=== PATIENT | female | born 1995 | race Two or more races ===

== ENCOUNTER 2021-08-22 19:41 | Emergency (ER) | payer MEDICAID, OTHER ==
[~2021-08-22] VITALS: Ht 175.3 cm; Wt 74.8 kg
[2021-08-22 19:46] VITALS: BP 143/87
[2021-08-22] MEDS ORDERED: LORazepam 0.5 MG TAB PO ONE (20:00)
== END 2021-08-22 21:41 | disposition left against medical advice (07) ==
LOC: EDBD 19:41 → ER 19:41
DX: F41.9 Anxiety disorder, unspecified (principal); T43.615A Adverse effect of caffeine, initial encounter; Y92.89 Other specified places as the place of occurrence of the external cause

== ENCOUNTER 2021-10-26 16:23 | Emergency (ER) | payer MEDICAID ==
[~2021-10-26] VITALS: Ht 180.3 cm; Wt 81.8 kg
[2021-10-26] MEDS ORDERED: IPRATROPIUM BROM 0.5 MG/2.5ML INH SOL NEB ONE (17:15)
[2021-10-26] MEDS ORDERED: ALBUTEROL SULF 2.5 MG/0.5ML(0.5%) NEB SOLN NEB ONE (17:15)
[2021-10-26] MEDS ORDERED: ALPRAZolam 0.5 MG TAB PO ONE (17:15)
[2021-10-26 17:40] VITALS: BP 131/80
[2021-10-26] MEDS ORDERED: PRED20TA2 PO (17:47)
[2021-10-26] MEDS ORDERED: HYDR50CA PO (17:47)
== END 2021-10-26 18:02 | disposition left against medical advice (07) ==
LOC: ER 16:25
DX: J45.901 Unspecified asthma with (acute) exacerbation (principal); F41.1 Generalized anxiety disorder; F17.210 Nicotine dependence, cigarettes, uncomplicated; F12.10 Cannabis abuse, uncomplicated; Z53.29 Procedure and treatment not carried out because of patient's decision for other reasons
CPT/HCPCS: 94640; 99283; J7644

== ENCOUNTER 2021-10-31 17:01 | Emergency (ER) | payer MEDICAID ==
[~2021-10-31] VITALS: Ht 180.3 cm; Wt 84.3 kg
[~2021-10-31 17:01] MED LIST: HYDR50CA PO; PRED20TA2 PO
[2021-10-31] MEDS ORDERED: ALBUTEROL SULF 2.5 MG/0.5ML(0.5%) NEB SOLN HHN ONE (17:15)
[2021-10-31] MEDS ORDERED: methylPREDNISolone SOD SUCC 125 MG/2 ML VL IV ONE (17:15)
[2021-10-31] MEDS ORDERED: IPRATROPIUM BROM 0.5 MG/2.5ML INH SOL HHN ONE (17:15)
[2021-10-31] MEDS ORDERED: SODIUM CHLORIDE 0.9% 1,000 ML IV ONE (17:45)
[2021-10-31 18:25] VITALS: BP 145/79
[2021-10-31 19:04] LABS: Basophils # (auto) 0 10 ^3/uL (0-0.2); Basophils % (auto) 0.5 % (0.0-2.0); Eosinophils # (auto) 0.1 10 ^3/uL (0-0.8); Eosinophils % (auto) 0.8 % (0.0-7.0); Hematocrit 37.6 % (36.0-46.0); Lymphocytes # (auto) 0.8 10 ^3/uL (0.4-5.4); Lymphocytes % (auto) 8.5 % (10.0-50.0); Mean Corpuscular Hemoglobin 27.9 pg (28.0-32.0); Mean Corpuscular Volume 87.3 fL (80.0-100.0); Monocytes # (auto) 0.2 10 ^3/uL (0-1.3); Monocytes % (auto) 2.3 % (0.0-12.0); Neutrophils # (auto) 7.8 10 ^3/uL (1.6-8.6); Neutrophils % (auto) 87.9 % (37.0-80.0); Nucleated Red Blood Cells % 0.1 %; Red Cell Distribution Width 14.2 % (11.8-14.3); White Blood Cell 8.9 10^3/uL (4.4-10.8)
[2021-10-31] MEDS ORDERED: LORazepam 2MG/ML-1ML VIAL IV ONE (19:15)
[2021-10-31 19:34] LABS: Albumin 3.8 g/dL (3.4-5.0); Calcium 8.7 mg/dL (8.5-10.1); Potassium 3.4 mmol/L (3.5-5.1)
[2021-10-31 19:39] LABS: BUN/Creatinine Ratio 14.5; Bilirubin, Total 0.2 mg/dL (0.2-1.0); Total Protein 7.5 g/dL (6.4-8.2)
[2021-10-31] MEDS ORDERED: AZIT1POW PO (20:41)
[2021-10-31] MEDS ORDERED: METH4PAK PO (20:41)
[2021-10-31] MEDS ORDERED: LORazepam 2MG/ML-1ML VIAL IM ONE (20:45)
[2021-10-31] MEDS ORDERED: methylPREDNISolone SOD SUCC 125 MG/2 ML VL IM ONE (20:45)
[2021-10-31] MEDS ORDERED: LORazepam 0.5 MG TAB PO ONE (21:30)
== END 2021-10-31 21:58 | disposition home or self-care (01) ==
LOC: ER 17:01
DX: J45.901 Unspecified asthma with (acute) exacerbation (principal)
CPT/HCPCS: 36415; 71046; 80053; 85025; 96372; 99284; J2930; J7644

== ENCOUNTER 2023-10-18 15:48 | Emergency (ER) | payer MEDICAID ==
[~2023-10-18] VITALS: Ht 180.3 cm; Wt 107.0 kg
[~2023-10-18 15:48] MED LIST changes: +AZIT1POW PO; +METH4PAK PO
[2023-10-18 16:19] LABS: Basophils # (auto) 0.1 10 ^3/uL (0-0.2); Basophils % (auto) 1.2 % (0.0-2.0); Eosinophils # (auto) 0.1 10 ^3/uL (0-0.8); Eosinophils % (auto) 0.9 % (0.0-7.0); Hematocrit 37.4 % (36.0-46.0); Hemoglobin 12.7 g/dL (12.2-16.2); Lymphocytes # (auto) 3.3 10 ^3/uL (0.4-5.4); Lymphocytes % (auto) 38.8 % (10.0-50.0); Mean Corpuscular Hemoglobin 29.4 pg (28.0-32.0); Mean Corpuscular Hgb Conc. 33.9 g/dL (32.0-36.0); Mean Corpuscular Volume 86.9 fL (80.0-100.0); Monocytes # (auto) 0.7 10 ^3/uL (0-1.3); Monocytes % (auto) 8.4 % (0.0-12.0); Neutrophils # (auto) 4.3 10 ^3/uL (1.6-8.6); Neutrophils % (auto) 50.7 % (37.0-80.0); Nucleated Red Blood Cells % 0.1 %; Platelet Count (auto) 328 10^3/uL (140-450); Red Cell Distribution Width 12.5 % (11.8-14.3); White Blood Cell 8.5 10^3/uL (4.4-10.8)
[2023-10-18 16:34] LABS: INR 0.99 (0.9-1.15); Partial Thromboplastin Time 26.4 SEC (24.5-34.5); Prothrombin Time 10.5 sec (9.3-11.8)
[2023-10-18 16:39] LABS: Alanine Aminotransferase 25 U/L (7-40); Albumin 4.1 g/dL (3.2-4.8); Alkaline Phosphatase 53 U/L (46-116); Anion Gap 7 (5-15); Aspartate Aminotransferase 16 U/L (13-40); BUN/Creatinine Ratio 11.8 (10.0-20.0); Bilirubin, Total 0.4 mg/dL (0.2-1.0); Blood Urea Nitrogen 12 mg/dL (9-23); Calcium 9.3 mg/dL (8.7-10.4); Carbon Dioxide 24 mmol/L (20-30); Chloride 107 mmol/L (98-107); Glucose 97 mg/dL (74-106); Potassium 3.7 mmol/L (3.5-5.1); Sodium 138 mmol/L (136-145)
[2023-10-18] MEDS: KETOROLAC TROMETH 60MG/2ML VIAL IM ONE (17:54)
[2023-10-18 18:08] LABS: Urine Bacteria FEW /hpf (None Seen); Urine Blood Negative /uL (Negative); Urine Clarity Clear (Clear); Urine Color Light-Yellow (Yellow); Urine Protein, UAD Negative (Negative); Urine Specific Gravity 1.022 (1.001-1.035); Urine Urobilinogen Normal (Negative); Urine WBC 2 /hpf (0 - 5)
[2023-10-18] MEDS ORDERED: NAP500T GT (19:30)
[2023-10-18] MEDS: HYDROcodone-ACET 10/325MG TAB PO ONE (20:45)
[2023-10-18] MEDS ORDERED: NAP500T PO (20:58)
[2023-10-18 21:01] VITALS: BP 131/78; TEMP 97.6
[2023-10-18 21:02] VITALS: PULSE 61; RESP 18; O2SAT 96
== END 2023-10-18 21:07 | disposition home or self-care (01) ==
LOC: ER 15:48
DX: R51.9 Headache, unspecified (principal); J45.909 Unspecified asthma, uncomplicated; F17.210 Nicotine dependence, cigarettes, uncomplicated; F12.90 Cannabis use, unspecified, uncomplicated
CPT/HCPCS: 36415; 70450; 71045; 80053; 81001; 84484; 85025; 85379; 85610; 85730; 93005; 96372; 99285; J1885

== ENCOUNTER 2024-12-18 14:52 | Emergency (ER) | payer MEDICAID ==
[~2024-12-18] VITALS: Ht 170.2 cm; Wt 110.2 kg
[~2024-12-18 14:52] MED LIST changes: +NAP500T PO
--- NOTE | 2024-12-18 15:08 | ED.PDOC ---
History of Present Illness HPI Comments This is a 29-year-old female who comes in with chief complaint of sore throat. The patient states that the symptoms started approximately three weeks ago. The patient denies any fever or chills. The patient denies any other complaints at this time. 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 Chief Complaint: Sore Throat Time Seen by MD: 14:58 Primary Care Provider: UNKNOWN Reviewed Notes: Nurses Notes, Medications, Allergies (No allergies to medications) Allergies: Coded Allergies: NO KNOWN ALLERGIES (Unverified , 08/22/21) Home Meds Active Scripts Azithromycin (Zithromax) 1 Gm Pow, 1 PACK PO ONCE, #1 PACK Prov:GUDELIA GONZALEZ MD 12/18/24 Naproxen (NAPROSYN TABLET) 500 Mg Tb, 500 MG PO BID for 10 Days, #20 TAB Prov:MASHA ESPINOZA MD 10/18/23 Methylprednisolone (Medrol Dosepak) 4 Mg Presley, 4 MG PO UD, #21 TAB UAD Prov:GUDELIA GONZALEZ MD 10/31/21 Prednisone (Prednisone) 20 Mg Tab, 60 MG PO DAILY, #18 MG Prov:KEZIA CONTRERAS 10/26/21 Hydroxyzine Pamoate (Vistaril) 50 Mg Cap, 50 MG PO QHSP PRN, #20 CAP Prov:KEZIA CONTRERAS 10/26/21 Information Source: Patient Mode of Arrival: Ambulatory Severity: Mild Timing: Weeks (Symptoms started three weeks ago) Duration: Since onset Prehospital treatment: None Location: Sore throat Associated signs and symptoms No vomiting or diarrhea Past Medical History PAST MEDICAL HISTORY: Anxiety, Asthma Surgical History: Denies all surgeries 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: 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 Family History Family History: Reviewed,noncontributory to illness Social History Smoker: Other (VAPE) Alcohol: Occasionally Drugs: Marijuana Lives In: Home Constitutional: denies: chills, diaphoresis, fatigue, fever, malaise, sweats, weakness, others EENTM: reports: throat pain; denies: blurred vision, double vision, ear bleeding, ear discharge, ear drainage, ear pain, ear ringing, eye pain, eye redness, hearing loss, mouth pain, mouth swelling, nasal discharge, nose bleeding, nose congestion, nose pain, photophobia, tearing, throat swelling, voice changes, others Respiratory: denies: cough, hemoptysis, orthopnea, SOB at rest, shortness of breath, SOB with excertion, stridor, wheezing, others Cardiovascular: denies: chest pain, dizzy spells, diaphoresis, Dyspnea on exertion, edema, irregular heart beat, left arm pain, lightheadedness, palpitations, PND, syncope, others Gastrointestinal: denies: abdomen distended, abdominal pain, blood streaked bowels, constipated, diarrhea, dysphagia, difficulty swallowing, hematemesis, melena, nausea, poor appetite, poor fluid intake, rectal bleeding, rectal pain, vomiting, others Genitourinary: denies: abnormal vagina bleeding, burning, dyspareunia, dysuria, flank pain, frequency, hematuria, incontinence, pain, , vagina discharge, urgency, others Neurological: denies: dizziness, fainting, headache, left sided numbness, left sided weakness, numbness, paresthesia, pre-existing deficit, right sided numbness, right sided weakness, seizure, speech problems, tingling, tremors, weakness, others Musculoskeletal: denies: back pain, gout, joint pain, joint swelling, muscle pain, muscle stiffness, neck pain, others Integumetry: denies: bruises, change in color, change in hair/nails, dryness, laceration, lesions, lumps, rash, wounds, others Allergic/Immunocompromised: denies: Difficulty Healing, Frequent Infections, Hives, Itching, others Hematologic/Lymphatic: denies: anemia, blood clots, easy bleeding, easy bruising, swollen glands, others Endocrine: denies: excessive hunger, excessive sweating, excessive thirst, excessive urination, flushing, intolerance to cold, intolerance to heat, unexplained weight gain, unexplained weight loss, others Psychiatric: denies: anxiety, bipolar disorder, depression, hopeless, panic disorder, schizophrenia, sleepless, suicidal, others Physical Exam General Appearance: Mild Distress HEENT: Pharyngeal Erythema, TMs Normal Neck: Full Range of Motion, Non-Tender, Normal, Normal Inspection Respiratory: Chest Non-Tender, Lungs Clear, No Accessory Muscle Use, No Respiratory Distress, Normal Breath Sounds Cardiovascular: No Edema, No JVD, No Murmur, No Gallop, Normal Peripheral Pulses, Regular Rate/Rhythm Breast Exam: Deferred Gastrointestinal: No Organomegaly, Non Tender, No Pulsatile Mass, Normal Bowel Sounds, Soft Genitalia: Deferred Pelvic: Deferred Rectal: Deferred Extremities: No calf tenderness, Normal capillary refill, Normal inspection, Normal range of motion, Non-tender, No pedal edema Musculoskeletal : Apperance: Normal Neurologic: Alert, leadlighter II-XII nml as Tested, No Motor Deficits, Normal Affect, Normal Mood, No Sensory Deficits Cerebellar Function: Normal Reflexes: Normal Skin: Dry, Normal Color, Warm Lymphatic: No Adenopathy Was a procedure done? Was a procedure done?: No Differential Dx Considerations may include: Pharyngitis, tonsillitis, generalized weakness X-Ray, Labs, Meds, VS Vital Signs Date Time Temp Pulse Resp B/P (MAP) Pulse Ox O2 Delivery O2 Flow Rate FiO2 12/18/24 14:53 97.3 84 18 137/76 96 97.3 The patient will be discharged The patient will follow up with the primary care doctor The patient will return to the emergency department's the condition worsens. Time of 1ST Reevaluation: 15:07 Reevaluation 1ST: Unchanged Patient Education/Counseling: Diagnosis, Treatment, Prognosis, Need For Follow Up Family Education/Counseling: No Family Present SEPSIS Sepsis Screen Date sepsis recognized/suspect: Dec 18, 2024 Time Sepsis recognized/suspect: 1454 Recent Procedure: No On Antibiotic Therapy: No Respiratory Rate >20: No Heart Rate >90: No Temp<36 C (96.8 F) or >38.3 C: No SBP <90 or MAP <65 mmHG: No New Acute Mental Status Change: No Is the patient on CPAP, BIPAP,: No Vital Signs Date Time Temp Pulse Resp B/P (MAP) Pulse Ox O2 Delivery O2 Flow Rate FiO2 12/18/24 14:53 97.3 84 18 137/76 96 97.3 Departure 1 Departure Time of Disposition: 15:33 Impression: Primary Impression: Pharyngitis Qualified Codes: J02.9 - Acute pharyngitis, unspecified Disposition: HOME / SELF CARE / HOMELESS Condition: Fair e-Prescriptions Azithromycin (Zithromax) 1 Gm Pow 1 PACK PO ONCE, #1 PACK Prov: GUDELIA GONZALEZ MD 12/18/24 Discharged With: Self Critical Care Note Critical Care Time?: No Stability Stability form required: No Heart Score Heart Score: Heart Score Response (Comments) Value History N/A 0 EKG N/A 0 Age N/A 0 Risk Factors N/A 0 Troponin N/A 0 Total 0 GUDELIA GONZALEZ MD Dec 18, 2024 15:08
[2024-12-18 15:54] VITALS: BP 135/78; PULSE 82; RESP 16; TEMP 98; O2SAT 98
== END 2024-12-18 16:03 | disposition home or self-care (01) ==
LOC: ER 14:52
DX: J02.9 Acute pharyngitis, unspecified (principal); F41.9 Anxiety disorder, unspecified; J45.909 Unspecified asthma, uncomplicated; F17.290 Nicotine dependence, other tobacco product, uncomplicated; Z79.899 Other long term (current) drug therapy